=== PATIENT | female | born 1990 | race Caucasian/White ===

== ENCOUNTER 2016-10-20 16:36 | Emergency (ER) | payer SELFPAY ==
[~2016-10-20] VITALS: Ht 162.6 cm; Wt 50.4 kg
[~2016-10-20 16:36] MED LIST: ACET-789 PO; AMOX500T2 PO; ASPI1TAB22 PO; CEPH-507 PO; ONDA4TAB8 PO; RIZA5TAB32 PO; SULF-228 PO; ZOLP10TA PO; [UNRECOGNIZED DRUG - REMARK] PO
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
[2016-10-20] MEDS ORDERED: ACDPT PO (16:54)
--- NOTE | 2016-10-20 17:34 | Diagnostic Imaging Report ---
Indication: Right valiente pain after being kicked during soccer. Discussion: Two views of the right tibia and fibula were obtained, no comparison. No acute fracture, dislocation, or other osseous abnormality identified. No significant degenerative disease. Alignment is anatomic. Soft tissues are unremarkable. No radiopaque foreign body. Impression: Negative right tibia and fibula. Dictated by: Dictated on workstation # [id number]
[2016-10-20] MEDS ORDERED: HYDROcodone/APAP 5 MG/325 MG (NORCO) TAB PO ONE (17:35)
[2016-10-20] MEDS ORDERED: HYDR-3702 PO (18:19)
[2016-10-20] MEDS ORDERED: ED- HYDROcodone/ACETAMINOPHEN 5MG/325MG (NORCO) 6 TABLETS/BTL PO ONE (18:25)
[2016-10-20 18:42] VITALS: BP 118/75
== END 2016-10-20 18:42 | disposition home or self-care (01) ==
LOC: ED 16:40
DX: S80.11XA Contusion of right lower leg, initial encounter (principal); S46.911A Strain of unspecified muscle, fascia and tendon at shoulder and upper arm level, right arm, initial encounter; W03.XXXA Other fall on same level due to collision with another person, initial encounter; Y93.66 Activity, soccer; Y92.830 Public park as the place of occurrence of the external cause
CPT/HCPCS: 73590; 99282; L4386